=== PATIENT | male | born 1985 | race Caucasian/White ===

== ENCOUNTER 2021-11-04 09:49 | Oncology outpatient (recurring) (ONCR) | payer OTHER, BC, SELFPAY ==
[2021-11-04 12:30] LABS: Basophils % 0.4 %; Eosinophils # 0.1 10^3/uL (0.0-0.8); Eosinophils % 1.1 %; Hematocrit 49.8 % (42.0-52.0); Hemoglobin 16.4 g/dL (11.7-16.6); Lymphocytes # 2.5 10^3/uL (0.8-4.8); Lymphocytes % 33.6 %; Mean Corpuscular HGB Conc 32.9 g/dL (30.0-36.0); Mean Corpuscular Hemoglobin 27.9 pg (28.0-34.0); Mean Corpuscular Volume 84.8 fl (80-94); Mean Platelet Volume 10.9 fL (7.4-10.4); Monocytes # 0.6 10^3/uL (0.2-0.9); Monocytes % 7.7 %; Neutrophils # 4.31 10^3/uL (1.8-7.7); Neutrophils % 56.9 %; Nucleated Red Blood Cells % 0 %; Platelet Count 297 10^3/cmm (130-400); Red Blood Count 5.87 10^6/uL (4.1-5.3); Red Cell Distribution Width 12.4 % (12.1-15.1); White Blood Count 7.6 10^3/uL (4.0-10.0)
[2021-11-04 13:10] LABS: Alanine Aminotransferase 76 U/L (0-41); Albumin Level 4.5 g/dL (3.5-5.2); Alkaline Phosphatase 45 IU/L (40-130); Anion Gap 15.9 (5-19); Aspartate Amino Transferase 35 U/L (0-40); Blood Urea Nitrogen 7 mg/dL (6-20); Calcium 9.2 mg/dL (8.5-10.5); Carbon Dioxide 24 mmol/L (22-29); Chloride 99 mmol/L (98-107); Globulin 2.5 g/dL (1.3-4.6); Glomerular Filtration Rate 108.8 mL/min (90-130); Glucose 254 mg/dL (65-115); Lactate Dehydrogenase 194 U/L (135-225); Osmolality Calculated 287 mOsm/kg (285-295); Potassium 3.9 mmol/L (3.5-5.1); Sodium 135 mmol/L (136-145); Total Bilirubin 0.4 mg/dL (0.15-1.2)
[2021-11-04 17:42] LABS: LAB Peripheral Smear Sent for Review
[2021-11-05 16:14] LABS: Erythropoietin 10.8 mIU/mL (2.6-18.5)
[2021-11-12 14:23] LABS: CALR Exon 9 Mutation NOT DETECTED (NOT DETECTED); CSF3R Exon 14/17 Mutation NOT DETECTED (NOT DETECTED); JAK2 Exon 12 Mutation NOT DETECTED (NOT DETECTED); JAK2 V617 Block Specimen ID NG; JAK2 V617 Clinical Indication NG; JAK2 V617 Mutation NOT DETECTED (NOT DETECTED); JAK2 V617 Specimen Source BLOOD; MPL Exon 12 Mutation NOT DETECTED (NOT DETECTED)
== END 2021-11-04 23:59 | disposition home or self-care (01) ==
PROVIDERS: Visit Provider Internal Medicine Medical Oncology
DX: D75.1 Secondary polycythemia (principal); G47.33 Obstructive sleep apnea (adult) (pediatric); Z87.891 Personal history of nicotine dependence; Z79.899 Other long term (current) drug therapy
CPT/HCPCS: 80053; 81270; 82668; 83615; 85025; 99204

== ENCOUNTER → 2022-04-15 17:03 | Outpatient (BNVA) | payer BC, MEDICAID, SELFPAY | PROVIDERS: Visit Provider Family Medicine | DX: R05.9 Cough, unspecified (principal); R50.9 Fever, unspecified; B34.9 Viral infection, unspecified | CPT/HCPCS: 87400; 87426 ==

== ENCOUNTER 2022-12-11 20:00 | Outpatient (CLI) | payer OTHER, SELFPAY | END 2022-12-11 20:01 | disposition home or self-care (01) | LOC: SLEEP 12-12 05:22 | PROVIDERS: Visit Provider Family Medicine | DX: G47.33 Obstructive sleep apnea (adult) (pediatric) (principal) | CPT/HCPCS: 95811 ==

== ENCOUNTER → 2023-01-07 16:49 | Outpatient (BNVA) | payer OTHER, SELFPAY | PROVIDERS: PCP Family Medicine; Visit Provider Internal Medicine Pulmonary Disease | DX: R06.02 Shortness of breath (principal); J30.2 Other seasonal allergic rhinitis; J44.9 Chronic obstructive pulmonary disease, unspecified; Z87.891 Personal history of nicotine dependence; Z87.09 Personal history of other diseases of the respiratory system | CPT/HCPCS: 36415; 71046; 82785; 85025; 86003; 99204 ==

== ENCOUNTER → 2023-03-13 09:52 | Outpatient (BNVA) | payer OTHER, SELFPAY | PROVIDERS: PCP Family Medicine; Visit Provider Internal Medicine Pulmonary Disease | DX: J45.20 Mild intermittent asthma, uncomplicated (principal); Z87.891 Personal history of nicotine dependence; Z87.09 Personal history of other diseases of the respiratory system | CPT/HCPCS: 99214 ==

== ENCOUNTER 2023-04-01 13:41 | Outpatient (CLI) | payer OTHER, SELFPAY ==
[2023-04-01 13:54] VITALS: PULSE 90; RESP 18; O2SAT 96
[2023-04-01] MEDS: albuterol 2.5 mg/3 mL Neb INHALATION (13:57)
[2023-04-01 13:58] VITALS: PULSE 93
== END 2023-04-01 13:42 | disposition home or self-care (01) ==
LOC: RT 13:41
PROVIDERS: PCP Family Medicine; Visit Provider Internal Medicine Pulmonary Disease
DX: R06.02 Shortness of breath (principal)
CPT/HCPCS: 94060; 94726; 94729; J7613

== ENCOUNTER 2023-05-13 06:01 | Outpatient (CLI) | payer OTHER, SELFPAY ==
--- NOTE | 2023-05-13 | US_ITS ---
WS: [id number] RIGHT UPPER QUADRANT ULTRASOUND HISTORY: ELEVATED LFT'S COMPARISON: None available. Liver: 20.1 cm in length. Moderately enlarged liver with moderate to severe hepatic steatosis. Scatte red areas of focal fatty sparing. No mass identified. No bile duct dilatation. Portal Vein: Normal hepatopetal flow with monophasic waveform. Gallbladder: Normally distended gallbladder with no stones or wall thickening. CBD: 0.3 cm Pancreas: Not visualized. Right kidney: 14.2 cm in length. Normal size and echogenicity. No hydronephrosis or mass. Aorta and IVC: Unremarkable abdominal aorta and IVC. No ascites. IMPRESSION: 1. Normal gallbladder. 2. Moderately enlarged liver with moderate to severe hepatic steatosis. The entire liver is not well visualized due to attenuation. 3. No bile duct dilatation.
== END 2023-05-13 06:02 | disposition home or self-care (01) ==
LOC: RAD 06:02
PROVIDERS: PCP Family Medicine; Visit Provider Family Medicine
DX: R79.89 Other specified abnormal findings of blood chemistry (principal); K76.0 Fatty (change of) liver, not elsewhere classified; R16.0 Hepatomegaly, not elsewhere classified
CPT/HCPCS: 76705

== ENCOUNTER 2023-05-22 09:08 | Outpatient (CLI) | payer OTHER, SELFPAY ==
[2023-05-22 09:12] VITALS: BMI 43.7
--- NOTE | 2023-05-22 09:15 | NMCV_ITS ---
NM elena perf SPECT r/s* [id number] Estevan Gong Age: 38 Gender: M : 1985 Exam Date: 05/22/2023 10:39 Ordering Phys: Elizabeth Cooley MD Technologist: CONNOR George Exam Location: [facility] Indications: OTHER CARDIAC PROBLEMS STRESS TEST Please [facility] IMAGE PROTOCOL Rest/Stress 1 Lexiscan Day Radiopharmaceutical Dose (mCi) Administration Site Administered by Rest: Tc-99m 11.0 IV CONNOR Wilson Sestamibi Stress:Tc-99m 33.0 IV CONNOR Wilson Sestamibi Rest: 22-May-2023 60 Discovery 630 Stress: 22-May-2023 30 Discovery 630 0.4mg Lexiscan. Images obtained in supine and prone position. SPECT RESULTS Technical Quality: Excellent Raw Data Analysis: Normal Image Corrections: No attenuation or motion correction applied Summed Stress Score: 2 Summed Rest Score: 7 Summed Difference Score: 0 PERFUSION FINDINGS There is a small sized fixed perfusion defect noted in the inferior wall. 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 FUNCTIONAL RESULTS (calculated via Gated SPECT) Stress Image LV EF (%): 68 Stress EDV (mL):121 TID: 0.93 Stress ESV (mL):39 FUNCTIONAL FINDINGS: There is normal left ventricular systolic function. IMPRESSIONS 1. Abnormal myocardial perfusion imaging with small area of prior infarct in the RCA territory. No evidence of ischemia 2. LV systolic function is normal Bishnu Mcfarlane MD (Electronically Signed) Final Date: 28 May 2023 09:01 S
--- NOTE | 2023-05-22 09:15 | ECG_ITS ---
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 Interpretive Statements NAME OF STUDY: LEXISCAN SESTAMIBI STRESS TEST INDICATION: [Chest Pain] Procedure: At the baseline, the blood pressure was 137/88 mmHg with a heart rate of 80 bpm. The electrocardiogram showed normal sinus rhythm, normal axis with normal ST and T's. The Lexiscan was infused over a period of 20 seconds. A total of 0.4 mg of Lexiscan was infused. The stress phase was continued for a total of 5 minutes. Heart rate was at the end of stress phase was 85 bpm and a blood pressure of 141/70 mmHg. The EKG at the peak infusion revealed normal sinus rhythm with no significant ST-T wave changes. Sestamibi was injected 20 seconds after the Lexiscan infusion. Blood pressure at the end of recovery phase was 128/76 mmHg with a heart rate of 81 bpm. Conclusion: 1. Normal EKG response to Lexiscan infusion 2. No Lexiscan induced chest pain or cardiac arrhythmia. 3. Normal blood pressure and heart rate response. 4. Sestamibi/sestamibi perfusion scan pending; see separate report. Electronically Signed On 06-05-2023 11:54:50 MEDICAL TECH by Bishnu Mcfarlane M.D. [id number]
[2023-05-22] MEDS: regadenoson 0.4 Mg/5 ml Syringe IVP (11:21)
[2023-05-22 11:40] VITALS: BP 111/74; PULSE 72
== END 2023-05-22 09:09 | disposition home or self-care (01) ==
LOC: CDL 09:08
PROVIDERS: PCP Family Medicine; Visit Provider Family Medicine
DX: R07.9 Chest pain, unspecified (principal); I25.2 Old myocardial infarction
CPT/HCPCS: 36415; 78452; 93017; 96374; A9500; J2785

== ENCOUNTER → 2023-06-12 09:28 | Outpatient (BNVA) | payer OTHER, SELFPAY | PROVIDERS: PCP Family Medicine; Visit Provider Internal Medicine Pulmonary Disease | DX: J45.20 Mild intermittent asthma, uncomplicated (principal); Z87.891 Personal history of nicotine dependence; Z87.09 Personal history of other diseases of the respiratory system | CPT/HCPCS: 99214 ==

== ENCOUNTER 2024-08-03 10:05 | Emergency (ER) | payer OTHER, SELFPAY ==
[2024-08-03 10:06] VITALS: BP 154/92; PULSE 87; RESP 16; TEMP 37.1; O2SAT 96; BMI 42.8
--- NOTE | 2024-08-03 11:15 | PC.PHAR ---
[facility] is [facility] 11:15am
[2024-08-03 11:36] VITALS: BP 170/105; PULSE 90; O2SAT 98
--- NOTE | 2024-08-03 11:38 | W.ED.ABDPA2 ---
HPI - Abdominal Pain General: Chief Complaint: Abdominal Pain Stated Complaint: abd pain Time Seen by Provider: 08/03/24 11:13 History of Present Illness: 39-year-old man with a history of peripheral neuropathy, GERD, obesity, hyperlipidemia, hypertension, migraines, depression, obstructive sleep apnea, type 2 diabetes and COPD who presents to the emergency room with abdominal pain. She is having right lower abdominal pain and bilateral low back pain. This been going on for about 5 days. He has had some mild nausea and has not been drinking much fluids and feels dehydrated he says. No dysuria. No change in urine odor or appearance. No chest pain. No shortness of breath. No known fevers. Related Data Home Medications ?Medication ?Instructions ?Recorded ?Confirmed empagliflozin 25 mg tablet 25 mg PO DAILY 01/07/23 08/03/24 glimepiride 2 mg tablet 1 mg PO DAILY 01/07/23 08/03/24 ipratropium 20 mcg-albuterol 100 1 puff inhalation QID PRN 01/07/23 08/03/24 mcg/actuation mist for inhalation shortness of breath or wheezing metformin 1,000 mg tablet 1,000 mg PO BID 01/07/23 08/03/24 rosuvastatin 40 mg tablet 40 mg PO DAILY 01/07/23 08/03/24 sumatriptan succinate 6 mg/0.5 mL See Rx Instructions .Route .COMPLEX 08/03/24 08/03/24 subcutaneous syringe Previous Rx's ?Medication ?Instructions ?Recorded cholecalciferol (vitamin D3) 50 50 mcg PO DAILY #30 caps 11/04/21 mcg (2,000 unit) capsule famotidine 40 mg tablet 40 mg PO BID #60 tabs 11/04/21 topiramate 25 mg tablet 25 mg PO BID #60 tabs 11/04/21 cephalexin 500 mg tablet 500 mg PO TID 7 days #21 tabs 08/03/24 dexamethasone 6 mg tablet 6 mg PO DAILY 5 days #5 tabs 08/03/24 diclofenac sodium 50 mg 50 mg PO BID PRN pain #14 tabs 08/03/24 tablet,delayed release hydrocodone 5 mg-acetaminophen 325 1 tab PO Q6H PRN pain #20 tabs 08/03/24 mg tablet ondansetron 8 mg disintegrating 8 mg PO Q6H #14 tabs 08/03/24 tablet polyethylene glycol 3350 17 17 g PO DAILY #510 grams 08/03/24 gram/dose oral powder (Miralax) Allergies Allergy/AdvReac Type Severity Reaction Status Date / Time Sulfa (Sulfonamide Allergy Mild Unknown Verified 06/12/23 09:46 Antibiotics) Review of Systems Narrative: Constitutional symptoms: Negative except as documented in HPI. Skin symptoms: Negative except as documented in HPI. Eye symptoms: Negative except as documented in HPI. ENMT symptoms: Negative except as documented in HPI. Respiratory symptoms: Negative except as documented in HPI. Cardiovascular symptoms: Negative except as documented in HPI. Gastrointestinal symptoms: Negative except as documented in HPI. Genitourinary symptoms: Negative except as documented in HPI. Musculoskeletal symptoms: Negative except as documented in HPI. Neurologic symptoms: Negative except as documented in HPI. Psychiatric symptoms: Negative except as documented in HPI. Endocrine symptoms: Negative except as documented in HPI. PFSH ED PFSH: Medical History Degenerative arthritis Peripheral neuropathy Pleural abscess GERD (gastroesophageal reflux disease) Hyperlipidemia Hypertension Chronic migraine Depression Chronic obliterative bronchiolitis Obstructive sleep apnea Type 2 diabetes mellitus PTSD (post-traumatic stress disorder) COPD (chronic obstructive pulmonary disease) Surgical History History of tonsillectomy History of thoracentesis History of chest tube placement Family History Grandmother Cancer liver Grandfather CAD (coronary artery disease) Hypertension Dementia Father CAD (coronary artery disease) Hypertension Mother Diabetes Other Hyperlipidemia Lung disease Psychiatric illness Denies family history of Clotting disorder Chronic kidney disease (CKD) Suicide Anesthesia complication Bleeding disorder Stroke Social History Smoking and tobacco/nicotine status: former use of tobacco/nicotine Quit status (tobacco/nicotine): has quit using Year quit tobacco: 2014 Former quit date comment: 1 ppd X 12 years Alcohol intake: never Marital status: service: Yes Current occupational status: disabled Current gender identity: Male Physical Exam Narrative: EXAM NARRATIVE: General: Alert, no acute distress. Skin: Warm, dry. Head: Normocephalic, atraumatic. Neck: Supple, trachea midline. Eye: Extraocular movements are intact. Ears, nose, mouth and throat: mucosa moist. Cardiovascular: Regular, Normal peripheral perfusion. Respiratory: Lungs are clear to auscultation, respirations are non-labored, breath sounds are equal, Symmetrical chest wall expansion. Gastrointestinal: Soft, right lower quadrant abdominal tenderness, Non distended Musculoskeletal: Normal ROM, no deformity. Neurological: Alert and oriented, No focal neurological deficit observed. Psychiatric: Cooperative, appropriate mood & affect. Course Vital Signs: Vital signs: Vital Signs Temperature 98.8 F 08/03/24 10:06 Pulse Rate 75 08/03/24 13:17 Respiratory Rate 16 08/03/24 10:06 Blood Pressure 151/89 08/03/24 13:17 Pulse Oximetry 96 08/03/24 13:17 Oxygen Delivery Me thod Room Air 08/03/24 13:17 MDM - Abdominal Pain Medical Decision Making Medical decision making: Differential diagnosis for this patient with right lower quadrant abdominal pain including but not limited to and based on the above HPI, review of systems and physical exam: Ureterolithiasis. Urinary tract infection. Appendicitis. colitis. small bowel obstruction. Crohn's flare. Pancreatitis. Cholelithiasis or cholecystitis. Hepatitis. Diverticulitis. Constipation. Workup: Orders were placed to evaluate differential diagnosis based on the above differential, HPI and exam: Lab Review: Laboratory results were reviewed and interpreted by myself the emergency room physician. No leukocytosis. Mild polycythemia with a hemoglobin of 17.5. No renal failure. CRP is mildly elevated. Flu COVID and RSV are negative. Urinalysis is quite concentrated and has 6-10 whites. Likely not an infection but I am going to treat him anyway. CT of the abdomen pelvis with contrast: Possible some mild distal ileus/ileitis. Appendix appears normal. Mesenteric adenitis. This was reviewed and interpreted by myself the emergency room physician. I also reviewed the radiology report. I reviewed the patient's medical record Reexamination: Patient remained stable. No increased work of breathing. No altered mental status. No focal motor deficits. Assessment and plan: Mesenteric adenitis Dehydration Urinary tract infection ?IV fluids. IV Zofran. IV Toradol. - Discharged home - Discussed findings and plan with patient. Answered any questions. - All laboratory values were reviewed and interpreted personally by myself, the ER physician - All imaging was reviewed and interpreted personally by myself, the ER physician. - Evaluation and treatment of this problem were appropriate in the emergency setting Lab Data 08/03/24 11:30 08/03/24 11:30 Labs/Radiology: Radiology Impressions Abdomen/Pelvis CT 08/03/24 12:24 IMPRESSION: 1. Small amount of enhancement with thickening of the distal ileum can be seen with infectious or inflammatory ileitis. Tiny amount of induration about the adjacent cecum. Recommend correlation with history of inflammatory bowel disease 2. No evidence of acute appendicitis. 3. Prominent lymph nodes in the central mesentery, RIGHT lower quadrant likely reactive. Additional prominent lymph nodes in the jacque hepatis and near the GE junction. Recommend interval follow-up. 4. Fatty liver. 5. No other acute findings. Notified Leticia Aguilar MD at 08/03/2024 1:55 PM. Laboratory Results WBC 8.86 10^3/uL (3.29-11.43) 08/03/24 11:30 RBC 6.01 10^6/uL (3.85-5.65) H 08/03/24 11:30 Hgb 17.50 g/dL (11.27-16.99) H 08/03/24 11:30 Hct 51.4 % (37-53) 08/03/24 11:30 MCV 85.5 fl (82-101) 08/03/24 11:30 MCH 29.1 pg (27-33) 08/03/24 11:30 MCHC 34.0 g/dL (30-55) 08/03/24 11:30 RDW 12.5 % (12.1-15.1) 08/03/24 11:30 Plt Count 266 10^3/cmm (157-399) 08/03/24 11:30 MPV 10.8 fL (7.4-10.4) H 08/03/24 11:30 Neut % (Auto) 56.3 % 08/03/24 11:30 Lymph % (Auto) 32.7 % 08/03/24 11:30 Eddy % (Auto) 8.4 % 08/03/24 11:30 Eos % (Auto) 1.7 % 08/03/24 11:30 Baso % (Auto) 0.6 % 08/03/24 11:30 Neut # (Auto) 4.99 10^3/uL (1.8-7.7) 08/03/24 11:30 Lymph # (Auto) 2.9 10^3/uL (0.8-4.8) 08/03/24 11:30 Eddy # (Auto) 0.7 10^3/uL (0.2-0.9) 08/03/24 11:30 Eos # (Auto) 0.2 10^3/uL (0.0-0.8) 08/03/24 11:30 Baso # (Auto) 0.1 10^3/uL (0.0-0.1) 08/03/24 11:30 Nucleated RBC % (auto) 0 % 08/03/24 11:30 Nucleated RBCs # 0.0 /100WBC 08/03/24 11:30 Sodium 138 mmol/L (136-145) 08/03/24 11:30 Potassium 4.1 mmol/L (3.5-5.1) 08/03/24 11:30 Chloride 102 mmol/L (98-107) 08/03/24 11:30 Carbon Dioxide 22 mmol/L (22-29) 08/03/24 11:30 Anion Gap 18.1 (5-19) 08/03/24 11:30 BUN 7 mg/dL (6-20) 08/03/24 11:30 Creatinine 0.7 mg/dL (0.7-1.2) 08/03/24 11:30 GFR Calculation 124.9 mL/min (90-130) 08/03/24 11:30 Glucose 140 mg/dL (65-115) H 08/03/24 11:30 Calculated Osmolality 286 mOsm/kg (285-295) 08/03/24 11:30 Lactic Acid 2.8 mmol/L (0.5-2.2) H 08/03/24 11:30 Calcium 9.6 mg/dL (8.5-10.5) 08/03/24 11:30 Total Bilirubin 0.6 mg/dL (0.15-1.2) 08/03/24 11:30 AST 45 U/L (0-40) H 08/03/24 11:30 ALT 79 U/L (0-41) H 08/03/24 11:30 Alkaline Phosphatase 55 U/L (40-130) 08/03/24 11:30 C-Reactive Protein 10.3 mg/L (0.0-4.9) H 08/03/24 11:30 Total Protein 8.0 g/dL (6.6-8.7) 08/03/24 11:30 Albumin 4.7 g/dL (3.5-5.2) 08/03/24 11:30 Globulin 3.3 g/dL (1.3-4.6) 08/03/24 11:30 Lipase 22 U/L (13-60) 08/03/24 11:30 Urine Color Yellow (Yellow) 08/03/24 11:22 Urine Appearance Clear (CLEAR) 08/03/24 11:22 Urine pH 5.5 (5-7) 08/03/24 11:22 Ur Specific Wendel 1.039 (1.005-1.030) H 08/03/24 11:22 Urine Protein Negative (Negative) 08/03/24 11:22 Urine Glucose (UA) 3+ (Normal) H 08/03/24 11:22 Urine Ketones Trace (Negative) 08/03/24 11:22 Urine Blood Negative (Negative) 08/03/24 11:22 Urine Nitrate Negative (Negative) 08/03/24 11:22 Urine Bilirubin Negative (Negative) 08/03/24 11:22 Urine Urobilinogen 1.0 mg/dL (Negative) 08/03/24 11:22 Ur Leukocyte Esterase Negative (Negative) 08/03/24 11:22 Urine RBC 0-2 /hpf (0-2) 08/03/24 11:22 Urine WBC 6-10 /hpf (0-5) 08/03/24 11:22 Ur Squamous Epith Cells 0-5 /hpf (0-5) 08/03/24 11:22 Amorphous Sediment Not Reportable 08/03/24 11:22 Urine Bacteria None seen /hpf (NONE) 08/03/24 11:22 Hyaline Casts 0-4 /lpf H 08/03/24 11:22 Influenza A (PCR) Negative (Negative) 08/03/24 11:34 Influenza Type B (PCR) Negative (Negative) 08/03/24 11:34 RSV (PCR) Negative (Negative) 08/03/24 11:34 SARS-CoV-2 (PCR) Negative (Negative) 08/03/24 11:34 All radiology interpretation(s) finalized by discharge Discharge Plan Discharge Patient Disposition: Home Clinical Impression: Mesenteric adenitis, Urinary tract infection Condition: Stable Prescriptions: New hydrocodone-acetaminophen 5-325 mg tablet 1 tab PO Q6H PRN (Reason: pain) Qty: 20 0RF dexamethasone 6 mg tablet 6 mg PO DAILY 5 Days Qty: 5 0RF diclofenac sodium 50 mg tablet,delayed release (DR/EC) 50 mg PO BID PRN (Reason: pain) Qty: 14 0RF polyethylene glycol 3350 [Miralax] 17 gram/dose powder 17 g PO DAILY Qty: 510 0RF Rx Instructions: Take 1-2 scoops daily for the next 3 months to keep stools soft ondansetron 8 mg tablet,disintegrating 8 mg PO Q6H Qty: 14 0RF Rx Instructions: Take 1/2-1 tab every 6 hours as needed for nausea and vomiting cephalexin 500 mg tablet 500 mg PO TID 7 Days Qty: 21 0RF No Action famotidine 40 mg tablet 40 mg PO BID Qty: 60 0RF topiramate 25 mg tablet 25 mg PO BID Qty: 60 0RF cholecalciferol (vitamin D3) 50 mcg (2,000 unit) capsule 50 mcg PO DAILY Qty: 30 0RF ipratropium-albuterol 20-100 mcg/actuation mist 1 puff inhalation QID PRN (Reason: shortness of breath or wheezing) empagliflozin 25 mg tablet 25 mg PO DAILY glimepiride 2 mg tablet 1 mg PO DAILY metformin 1,000 mg tablet 1,000 mg PO BID rosuvastatin 40 mg tablet 40 mg PO DAILY sumatriptan succinate 6 mg/0.5 mL Syringe See Rx Instructions .ROUTE .COMPLEX Rx Instructions: Take 6 mg subcutaneously one time for migraine headache. Take at onset of headache. May repeat after 1 hour. Max 2 doses daily. Discharge Orders: Discharge ED (Routine); Ordered 08/03/24 Ordered By: Leticia Aguilar Referrals: Elizabeth Cooley MD [Primary Care Provider] - Discharge Diet: Usual diet Discharge Activity: Increase activity as tolerated Patient Instructions: Mesenteric Adenitis (ED), Opioid Safety, Pain Management Activity Restrictions/Additional Instructions: Thank you for choosing [facility] for your healthcare needs today. You have been screened and evaluated and felt safe for discharge. Health conditions do change or evolve sometimes and as such it is important that you follow up with your Primary Doctor to be re checked, 3-5 days is a general good time frame for follow up. You are always welcome to return to the ED for re assessment if your symptoms are worsening or you have new concerns Print Language: Maltese Coding Level of Care Code ED Print Machine Operator for Margarita Cunningham
[2024-08-03 11:52] LABS: Basophils # 0.1 10^3/uL (0.0-0.1); Basophils % 0.6 %; Eosinophils # 0.2 10^3/uL (0.0-0.8); Eosinophils % 1.7 %; Hematocrit 51.4 % (37-53); Lymphocytes # 2.9 10^3/uL (0.8-4.8); Lymphocytes % 32.7 %; Mean Corpuscular Hemoglobin 29.1 pg (27-33); Mean Corpuscular Volume 85.5 fl (82-101); Mean Platelet Volume 10.8 fL (7.4-10.4); Monocytes # 0.7 10^3/uL (0.2-0.9); Monocytes % 8.4 %; Neutrophils # 4.99 10^3/uL (1.8-7.7); Neutrophils % 56.3 %; Nucleated Red Blood Cells % 0 %; Platelet Count 266 10^3/cmm (157-399); Red Blood Count 6.01 10^6/uL (3.85-5.65); Red Cell Distribution Width 12.5 % (12.1-15.1); White Blood Count 8.86 10^3/uL (3.29-11.43)
[2024-08-03 11:52] LABS: Bilirubin Urine Negative (Negative); Blood Urine Negative (Negative); Glucose Urine UA 3+ (Normal); Ketones Urine Trace (Negative); Leukocyte Esterase Urine Negative (Negative); Nitrate Urine Negative (Negative); Protein Urine Negative (Negative); Urine Appearance Clear (CLEAR); Urine Color Yellow (Yellow); pH Urine 5.5 (5-7)
[2024-08-03 11:56] LABS: Bacteria Urine None Seen /hpf; Hyaline Casts Urine 0-4 /lpf; RBC Urine 0-2 /hpf (0-2); Squamous Epithelial Cell Urine 0-5 /hpf (0-5)
[2024-08-03 12:00] VITALS: BP 161/98; PULSE 84; O2SAT 93
[2024-08-03] MEDS: ondansetron 2 mg/ML SDV 2 mL 4 MG IVP (12:00)
[2024-08-03] MEDS: ketorolac 30 mg/mL INJ IVP (12:00)
[2024-08-03 12:05] LABS: Specific Gravity, Urine 1.039 (1.005-1.030)
[2024-08-03 12:06] LABS: Add Urine Culture? No
[2024-08-03] MEDS: sodium chloride 0.9% 1,000 ML 999 ML IV (12:06)
[2024-08-03 12:17] LABS: Lactic Sepsis W/Reflex 2.8 mmol/L (0.5-2.2)
[2024-08-03 12:18] LABS: Alanine Aminotransferase 79 U/L (0-41); Albumin Level 4.7 g/dL (3.5-5.2); Alkaline Phosphatase 55 U/L (40-130); Anion Gap 18.1 (5-19); Aspartate Amino Transferase 45 U/L (0-40); Blood Urea Nitrogen 7 mg/dL (6-20); C Reactive Protein 10.3 mg/L (0.0-4.9); Calcium 9.6 mg/dL (8.5-10.5); Carbon Dioxide 22 mmol/L (22-29); Chloride 102 mmol/L (98-107); Creatinine Clr Calc Pharmacy 206.1389; Globulin 3.3 g/dL (1.3-4.6); Glomerular Filtration Rate 124.9 mL/min (90-130); Glucose 140 mg/dL (65-115); Lipase 22 U/L (13-60); Osmolality Calculated 286 mOsm/kg (285-295); Potassium 4.1 mmol/L (3.5-5.1); Sodium 138 mmol/L (136-145); Total Bilirubin 0.6 mg/dL (0.15-1.2)
--- NOTE | 2024-08-03 12:24 | CT_ITS ---
WS: [id number] CT ABDOMEN PELVIS TECHNIQUE: Contrast-enhanced CT of the abdomen and pelvis with coronal and sagittal reformatted images. CLINICAL INFORMATION: RLQ abdominal pain COMPARISON: None. DLP: 1411.[address] scans at [facility] use at least one of these dose optimization techniques: automated exposure control; mA and/or kV adjustment per patient size (includes targeted exams where dose is matched to clinical indication); or iterative reconstruction. FINDINGS: Appendix is difficult to visualize. There is a tiny suggestion of an appendix in the distal cecum which is normal. No evidence of acute appendicitis. Prominent lymph nodes along the central mesentery mesenteric root and RIGHT lower quadrant can be seen with mesenteric adenitis. Mild thickening and enhancement of the distal ileum with slight surrounding induration suspicious for infectious or inflammatory ileitis. Only a tiny amount of induration involving the cecum. Fatty liver. Hepatomegaly. Normal portal vein and splenic vein. Tiny esophageal hiatal hernia. Prominent lymph node at the GE junction measuring 11 mm in short axis dimension. Nonspecific but may be reactive. Lung bases are well aerated. Fatty atrophy of the pancreas. Normal spleen. Celiac and SMA are patent. Normal caliber abdominal aorta. Adrenal glands are normal. Small LEFT adrenal nodule likely adenoma. Few prominent lymph nodes in the jacque hepatis. No hydronephrosis in either kidney. Small RIGHT renal cyst. Small fat-containing umbilical hernia. CT/CT abdomen pelvis w con* [id number] IMPRESSION: 1. Small amount of enhancement with thickening of the distal ileum can be seen with infectious or inflammatory ileitis. Tiny amount of induration about the a djacent cecum. Recommend correlation with history of inflammatory bowel disease 2. No evidence of acute appendicitis. 3. Prominent lymph nodes in the central mesentery, RIGHT lower quadrant likely reactive. Additional prominent lymph nodes in the jacque hepatis and near the G E junction. Recommend interval follow-up. 4. Fatty liver. 5. No other acute findings. Notified Leticia Aguilar MD at 08/03/2024 1:55 PM.
[2024-08-03 12:49] LABS: Influenza A NEGATIVE (Negative); Influenza B NEGATIVE (Negative); Respiratory Syncytial Virus Ce NEGATIVE (Negative); SARS-CoV-2 PCR NEGATIVE (Negative)
[2024-08-03] MEDS: iohexol 350 mg/mL 500 mL Btl (per mL) IV (12:49)
[2024-08-03 12:57] VITALS: BP 145/87; PULSE 78; O2SAT 98
[2024-08-03 13:17] VITALS: BP 151/89; PULSE 75; O2SAT 96
[2024-08-03 13:36] LABS: Reflex Lactate Order REFLEX LACTIC ORDERD
[2024-08-03 14:11] VITALS: BP 143/82; PULSE 80; O2SAT 94
== END 2024-08-03 14:12 | disposition home or self-care (01) ==
PROVIDERS: Emergency Provider Emergency Medicine; PCP Family Medicine
DX: I88.0 Nonspecific mesenteric lymphadenitis (principal); N39.0 Urinary tract infection, site not specified; Z79.84 Long term (current) use of oral hypoglycemic drugs; Z11.52 Encounter for screening for COVID-19; Z87.891 Personal history of nicotine dependence; E78.5 Hyperlipidemia, unspecified; I10 Essential (primary) hypertension; J44.9 Chronic obstructive pulmonary disease, unspecified; E11.42 Type 2 diabetes mellitus with diabetic polyneuropathy
CPT/HCPCS: 36415; 74177; 80053; 81001; 83605; 83690; 85025; 86140; 87040; 87637; 96361; 96374; 96375; 99285; J1885; J2405; J7030